=== PATIENT | female | born 1930 | race Caucasian/White ===

== ENCOUNTER 2019-10-20 11:05 | Inpatient (IN) ==
[2019-10-20] MEDS ORDERED: ACETAMINOPHEN 325 MG TABLET PO PRN (17:33)
[2019-10-20] MEDS: SODIUM CHLORIDE 0.9% 1,000 ML IV SCH (18:30)
[2019-10-20] MEDS: MORPHINE 4 MG/1 ML VIAL IV PRN (21:22)
[2019-10-21] MEDS: SODIUM CHLORIDE 0.9% 1,000 ML IV SCH ×2 (01:36→13:00)
[2019-10-21] MEDS: MORPHINE 4 MG/1 ML VIAL IV PRN ×3 (03:53→17:47)
[2019-10-21 05:45] LABS: Basophils # 0.1 10*3/uL (0.0-0.2); Basophils % 0.4 % (0.0-0.8); Eosinophils # 0.3 10*3/uL (0.0-0.87); Eosinophils % 2.1 % (0.00-10.9); Hematocrit 32.5 VOL% (35.7-47.0); Hemoglobin 10.4 GM/DL (12.0-16.0); Immature Granulocytes % 0.5 %; Immature Granulocytes Absolute 0.06 #; Lymphocytes # 0.4 10*3/uL (1.4-4.0); Lymphocytes % 3.1 % (21.3-54.2); Mean Corpuscular Volume 97.9 FL (87-102); Mean Platelet Volume 11.8 FL (9.6-12.0); Monocytes % 3.9 % (1.7-12.7); Platelet Count 158 T/CUMM (130-400); Red Blood Count 3.32 MC/CUMM (3.8-5.5); Red Cell Distribution Width 13.2 % (9.3-17.3); White Blood Count 11.7 T/CUMM (4-12)
[2019-10-21 05:56] LABS: Osmolality,Calculated 287.3 MOS/KG (273-304)
[2019-10-21 06:09] LABS: Band Neutrophils 4 % (0-10); Eosinophils 3 % (0-10); Hypochromasia 1+; Lymphocytes 3 % (20-55); Segmented Neutrophils 88 % (50-85); Total Cells Counted 100
[2019-10-21 06:10] LABS: Platelet Estimate Adequate
[2019-10-21] MEDS: ceFAZolin 2,000 MG in PREMIX 1 EACH IV ONE ×2 (08:59→11:46)
[2019-10-21 10:57] LABS: Basophils # 0.1 10*3/uL (0.0-0.2); Basophils % 0.4 % (0.0-0.8); Eosinophils # 0.1 10*3/uL (0.0-0.87); Eosinophils % 0.7 % (0.00-10.9); Hemoglobin 10.2 GM/DL (12.0-16.0); Immature Granulocytes % 0.7 %; Immature Granulocytes Absolute 0.11 #; Lymphocytes # 2.9 10*3/uL (1.4-4.0); Lymphocytes % 17.4 % (21.3-54.2); Mean Corpuscular HGB Conc 31.9 GM/DL (32-36); Mean Corpuscular Volume 100.6 FL (87-102); Mean Platelet Volume 11.6 FL (9.6-12.0); Neutrophils % 77.8 % (38.7-73.9); Platelet Count 161 T/CUMM (130-400); Red Blood Count 3.18 MC/CUMM (3.8-5.5); Red Cell Distribution Width 13.2 % (9.3-17.3); White Blood Count 16.5 T/CUMM (4-12)
[2019-10-21] MEDS ORDERED: LIDOCAINE 2% 5 ML VIAL ONE (11:30)
[2019-10-21] MEDS ORDERED: BUPIVACAINE SPINAL 0.75% 2 ML AMP SPINAL ONE (11:30)
[2019-10-21] MEDS ORDERED: PHENYLEPHRINE 1 MG/10 ML SYRINGE IV ONE (11:31)
[2019-10-21] MEDS ORDERED: propofoL 200 MG/20 ML VIAL IV ONE (11:31)
[2019-10-21] MEDS ORDERED: KETAMINE 500 MG/10 ML VIAL ONE (11:31)
[2019-10-21] MEDS ORDERED: ATROPINE 0.4 MG/1 ML VIAL ONE (11:31)
[2019-10-21] MEDS: PANTOPRAZOLE 40 MG TABLET PO SCH (11:37)
[2019-10-21 12:33] LABS: Calcium 7.6 MG/DL (8.5-10.1); Osmolality,Calculated 287.4 MOS/KG (273-304)
[2019-10-21] MEDS ORDERED: ONDANSETRON 4 MG TABLET PO PRN (14:55)
[2019-10-21 16:05] LABS: CKMB % 2.1 %
[2019-10-21 16:08] LABS: Troponin I 2.05 NG/ML (0.00-0.045)
[2019-10-21 17:36] LABS: Apearance,Urine Slightly Hazy (Clear); Bilirubin,Urine Negative (Negative); Blood, Urine Moderate mg/dL (Negative); Glucose,Urine (UA) 50 mg/dL (Negative); Hyaline Casts,Urine 15 /LPF (0-3); Ketones,Urine Negative (Negative); Mucus,Urine Few /LPF (Occasional); Nitrite,Urine Negative (Negative); Protein,Urine 100 MG/DL; RBC,Urine 115 /HPF (0-4); Urine Color Amber (Yellow); Urine Specific Gravity 1.025 (1.001-1.035); Urine Urobilinogen < 2.0 EU/DL (0.2-1.0); WBC,Urine 18 /HPF (0-6)
[2019-10-21 18:52] LABS: Troponin I 1.56 NG/ML (0.00-0.045)
[2019-10-21] MEDS: RIVASTIGMINE 3 MG CAPSULE PO SCH (20:14)
[2019-10-21] MEDS: POTASSIUM CHLORIDE 10 MEQ TABLET PO SCH (20:14)
[2019-10-21] MEDS: carBAMazepine 200 MG TABLET PO SCH (20:14)
[2019-10-21] MEDS: SIMETHICONE CHEW 80 MG TABLET PO SCH (20:15)
[2019-10-21 21:49] LABS: CKMB % 2.3 %
[2019-10-21 21:58] LABS: Troponin I 1.89 NG/ML (0.00-0.045)
[2019-10-22 05:41] LABS: Basophils % 0.3 % (0.0-0.8); Eosinophils # 0.2 10*3/uL (0.0-0.87); Eosinophils % 2.3 % (0.00-10.9); Hemoglobin 7.9 GM/DL (12.0-16.0); Immature Granulocytes % 0.4 %; Immature Granulocytes Absolute 0.04 #; Lymphocytes # 0.4 10*3/uL (1.4-4.0); Lymphocytes % 4.2 % (21.3-54.2); Mean Corpuscular HGB Conc 31.6 GM/DL (32-36); Mean Corpuscular Volume 100.8 FL (87-102); Mean Platelet Volume 11.8 FL (9.6-12.0); Monocytes % 4.4 % (1.7-12.7); Neutrophils % 88.4 % (38.7-73.9); Platelet Count 126 T/CUMM (130-400); Red Blood Count 2.48 MC/CUMM (3.8-5.5); Red Cell Distribution Width 13.2 % (9.3-17.3); White Blood Count 9.6 T/CUMM (4-12)
[2019-10-22 06:00] LABS: Calcium 7.9 MG/DL (8.5-10.1); Osmolality,Calculated 289.3 MOS/KG (273-304)
[2019-10-22 06:07] LABS: Eosinophils 3 % (0-10); Hypochromasia 1+; Lymphocytes 3 % (20-55); Ovalocytes Slight; Segmented Neutrophils 91 % (50-85); Total Cells Counted 100
[2019-10-22 06:08] LABS: Macrocytosis Slight; Platelet Estimate Adequate
[2019-10-22] MEDS: RIVASTIGMINE 3 MG CAPSULE PO SCH ×2 (08:24→21:21)
[2019-10-22] MEDS: ASPIRIN 325 MG TABLET PO SCH (08:24)
[2019-10-22] MEDS: POLYETHYLENE GLYCOL POWDER 17 GM PACK PO SCH (08:24)
[2019-10-22] MEDS: SIMETHICONE CHEW 80 MG TABLET PO SCH ×2 (08:24→21:21)
[2019-10-22] MEDS: POTASSIUM CHLORIDE 10 MEQ TABLET PO SCH ×2 (08:24→21:21)
[2019-10-22] MEDS: PANTOPRAZOLE 40 MG TABLET PO SCH (08:25)
[2019-10-22] MEDS: CITALOPRAM 20 MG TABLET PO SCH (08:25)
[2019-10-22] MEDS: carBAMazepine 200 MG TABLET PO SCH ×2 (08:25→21:21)
[2019-10-22] MEDS ORDERED: lisinopriL 20 MG TABLET PO SCH (09:00)
[2019-10-22] MEDS: SODIUM CHLORIDE 0.9% 1,000 ML IV SCH ×3 (09:18→22:07)
[2019-10-22] MEDS: MORPHINE 4 MG/1 ML VIAL IV PRN ×4 (10:12→19:40)
[2019-10-22] MEDS: hydrALAZINE 20 MG/1 ML VIAL IV PRN (18:27)
[2019-10-23] MEDS: SODIUM CHLORIDE 0.9% 1,000 ML IV SCH ×4 (01:32→17:43)
[2019-10-23] MEDS: MORPHINE 4 MG/1 ML VIAL IV PRN ×4 (05:05→21:36)
[2019-10-23 05:36] LABS: Basophils % 0.4 % (0.0-0.8); Eosinophils # 0.4 10*3/uL (0.0-0.87); Eosinophils % 5.4 % (0.00-10.9); Hematocrit 23.6 VOL% (35.7-47.0); Hemoglobin 7.6 GM/DL (12.0-16.0); Immature Granulocytes % 0.4 %; Immature Granulocytes Absolute 0.03 #; Lymphocytes # 0.7 10*3/uL (1.4-4.0); Lymphocytes % 8.2 % (21.3-54.2); Mean Corpuscular HGB Conc 32.2 GM/DL (32-36); Mean Corpuscular Volume 97.9 FL (87-102); Mean Platelet Volume 11.9 FL (9.6-12.0); Monocytes % 5.5 % (1.7-12.7); Neutrophils % 80.1 % (38.7-73.9); Platelet Count 127 T/CUMM (130-400); Red Blood Count 2.41 MC/CUMM (3.8-5.5); Red Cell Distribution Width 13.2 % (9.3-17.3)
[2019-10-23 06:16] LABS: Calcium 7.6 MG/DL (8.5-10.1); Osmolality,Calculated 284.4 MOS/KG (273-304)
[2019-10-23] MEDS ORDERED: KETOROLAC 30 MG/1 ML VIAL IV ONE (08:00)
[2019-10-23] MEDS: hydrALAZINE 20 MG/1 ML VIAL IV PRN ×2 (09:09→16:37)
[2019-10-23] MEDS ORDERED: SODIUM CHLORIDE 0.9% 1,000 ML IV PRN (09:13)
[2019-10-23] MEDS: ONDANSETRON 4 MG/2 ML VIAL IV PRN ×2 (10:24→20:05)
[2019-10-23] MEDS: HYDROmorphone 2 MG/1 ML VIAL IV PRN ×3 (10:24→22:46)
[2019-10-23] MEDS: RIVASTIGMINE 3 MG CAPSULE PO SCH ×2 (12:55→20:26)
[2019-10-23] MEDS: ASPIRIN 325 MG TABLET PO SCH (12:55)
[2019-10-23] MEDS: LINACLOTIDE 145 MCG CAPSULE PO SCH (12:55)
[2019-10-23] MEDS: SIMETHICONE CHEW 80 MG TABLET PO SCH ×2 (12:55→20:26)
[2019-10-23] MEDS: CITALOPRAM 20 MG TABLET PO SCH (12:55)
[2019-10-23] MEDS: POLYETHYLENE GLYCOL POWDER 17 GM PACK PO SCH (12:55)
[2019-10-23] MEDS ORDERED: ceFAZolin 1,000 MG VIAL ONE (13:28)
[2019-10-23] MEDS ORDERED: BISACODYL 10 MG SUPP RECTAL PRN (14:24)
[2019-10-23] MEDS ORDERED: TEMAZEPAM 7.5 MG CAPSULE PO PRN (14:24)
[2019-10-23] MEDS ORDERED: diphenhydrAMINE CAP 25 MG CAPSULE PO PRN (14:24)
[2019-10-23] MEDS ORDERED: LACTULOSE 20 GM/30 ML UDCUP PO PRN (14:24)
[2019-10-23] MEDS ORDERED: MAGNESIUM HYDROXIDE SUSP 30 ML UDCUP PO PRN (14:24)
[2019-10-23] MEDS ORDERED: MORPHINE 4 MG/1 ML VIAL IV PRN (14:40)
[2019-10-23] MEDS ORDERED: fentaNYL 100 MCG/2 ML VIAL ONE (14:49)
[2019-10-23] MEDS ORDERED: SEVOFLURANE 1 UNIT/15 MINUTE INH ONE (14:49)
[2019-10-23] MEDS ORDERED: ROCURONIUM 100 MG/10 ML VIAL IV ONE (14:50)
[2019-10-23] MEDS ORDERED: ePHEDrine 50 MG/ML AMP ONE (14:50)
[2019-10-23] MEDS ORDERED: GLYCOPYRROLATE 0.4 MG/2 ML VIAL ONE (14:50)
[2019-10-23] MEDS ORDERED: NEOSTIGMINE 10 MG/10 ML VIAL ONE (14:50)
[2019-10-23] MEDS ORDERED: ETOMIDATE 40 MG/20 ML VIAL IV ONE (14:50)
[2019-10-23] MEDS: PANTOPRAZOLE 40 MG VIAL IV SCH ×2 (15:01→20:25)
[2019-10-23] MEDS: carBAMazepine 200 MG TABLET PO SCH ×2 (15:02→20:27)
[2019-10-23] MEDS: hydrALAZINE 25 MG TABLET PO SCH ×2 (15:03→20:26)
[2019-10-23] MEDS: lisinopriL 20 MG TABLET PO SCH (17:26)
[2019-10-23] MEDS: ceFAZolin 1,000 MG in SYRINGE 1 EACH IV SCH (17:59)
[2019-10-23] MEDS: DOCUSATE SODIUM 100 MG CAPSULE PO SCH (20:26)
[2019-10-23] MEDS: QUEtiapine 25 MG TABLET PO SCH (20:27)
[2019-10-23] MEDS: carvediloL 6.25 MG TABLET PO SCH (20:27)
[2019-10-24] MEDS: ceFAZolin 1,000 MG in SYRINGE 1 EACH IV SCH (02:51)
[2019-10-24] MEDS: SODIUM CHLORIDE 0.9% 1,000 ML IV SCH ×2 (03:48→13:50)
[2019-10-24 06:09] LABS: Basophils % 0.3 % (0.0-0.8); Eosinophils # 0.2 10*3/uL (0.0-0.87); Eosinophils % 2.8 % (0.00-10.9); Hematocrit 27.2 VOL% (35.7-47.0); Hemoglobin 8.7 GM/DL (12.0-16.0); Immature Granulocytes % 0.5 %; Immature Granulocytes Absolute 0.03 #; Lymphocytes # 0.2 10*3/uL (1.4-4.0); Lymphocytes % 3.3 % (21.3-54.2); Mean Corpuscular Volume 95.8 FL (87-102); Mean Platelet Volume 12.1 FL (9.6-12.0); Monocytes % 6.7 % (1.7-12.7); Neutrophils % 86.4 % (38.7-73.9); Platelet Count 102 T/CUMM (130-400); Red Blood Count 2.84 MC/CUMM (3.8-5.5); Red Cell Distribution Width 16.5 % (9.3-17.3)
[2019-10-24 06:33] LABS: Eosinophils 3 % (0-10); Lymphocytes 1 % (20-55); Platelet Estimate Decreased; Segmented Neutrophils 93 % (50-85); Total Cells Counted 100
[2019-10-24 06:34] LABS: Hypochromasia 1+
[2019-10-24 06:35] LABS: Calcium 7.3 MG/DL (8.5-10.1); Osmolality,Calculated 287.1 MOS/KG (273-304)
[2019-10-24] MEDS: hydrALAZINE 20 MG/1 ML VIAL IV PRN (06:52)
[2019-10-24] MEDS: HYDROmorphone 2 MG/1 ML VIAL IV PRN ×2 (07:20→15:37)
[2019-10-24] MEDS: ONDANSETRON 4 MG/2 ML VIAL IV PRN (07:22)
[2019-10-24] MEDS ORDERED: hydrALAZINE 25 MG TABLET PO SCH (09:00)
[2019-10-24] MEDS: ASPIRIN 325 MG TABLET PO SCH (09:25)
[2019-10-24] MEDS: lisinopriL 20 MG TABLET PO SCH (09:25)
[2019-10-24] MEDS: SOLIFENACIN 5 MG TABLET PO SCH (09:25)
[2019-10-24] MEDS: QUEtiapine 25 MG TABLET PO SCH ×2 (09:26→21:43)
[2019-10-24] MEDS: CITALOPRAM 20 MG TABLET PO SCH (09:26)
[2019-10-24] MEDS: SIMETHICONE CHEW 80 MG TABLET PO SCH ×2 (09:26→21:42)
[2019-10-24] MEDS: DOCUSATE SODIUM 100 MG CAPSULE PO SCH ×2 (09:26→21:42)
[2019-10-24] MEDS: carvediloL 6.25 MG TABLET PO SCH ×2 (09:27→21:42)
[2019-10-24] MEDS: MORPHINE ER 15 MG TABLET PO SCH (09:27)
[2019-10-24] MEDS: carBAMazepine 200 MG TABLET PO SCH ×2 (09:27→21:43)
[2019-10-24] MEDS: RIVASTIGMINE 3 MG CAPSULE PO SCH ×2 (09:28→21:42)
[2019-10-24] MEDS: PANTOPRAZOLE 40 MG VIAL IV SCH ×2 (09:29→21:21)
[2019-10-24] MEDS: POLYETHYLENE GLYCOL POWDER 17 GM PACK PO SCH (09:29)
[2019-10-24] MEDS: FONDAPARINUX 2.5 MG/0.5 ML SYRINGE SUBCUT SCH (09:31)
[2019-10-24] MEDS: MORPHINE 4 MG/1 ML VIAL IV PRN (21:17)
[2019-10-25 05:03] LABS: Basophils % 0.3 % (0.0-0.8); Eosinophils # 0.1 10*3/uL (0.0-0.87); Eosinophils % 0.9 % (0.00-10.9); Hematocrit 24.6 VOL% (35.7-47.0); Immature Granulocytes % 0.3 %; Immature Granulocytes Absolute 0.02 #; Lymphocytes # 0.3 10*3/uL (1.4-4.0); Lymphocytes % 4.1 % (21.3-54.2); Mean Corpuscular HGB Conc 32.5 GM/DL (32-36); Mean Platelet Volume 11.6 FL (9.6-12.0); Monocytes % 6.4 % (1.7-12.7); Platelet Count 122 T/CUMM (130-400); Red Blood Count 2.59 MC/CUMM (3.8-5.5); Red Cell Distribution Width 15.8 % (9.3-17.3); White Blood Count 6.8 T/CUMM (4-12)
[2019-10-25 05:13] LABS: Calcium 7.8 MG/DL (8.5-10.1)
[2019-10-25 06:01] LABS: Eosinophils 1 % (0-10); Lymphocytes 6 % (20-55); Segmented Neutrophils 87 % (50-85); Total Cells Counted 100
[2019-10-25 06:02] LABS: Anisocytosis 1+; Macrocytosis 1+; Platelet Estimate Decreased
[2019-10-25] MEDS: lisinopriL 20 MG TABLET PO SCH (08:29)
[2019-10-25] MEDS: SOLIFENACIN 5 MG TABLET PO SCH (08:29)
[2019-10-25] MEDS: carvediloL 6.25 MG TABLET PO SCH (08:29)
[2019-10-25] MEDS: RIVASTIGMINE 3 MG CAPSULE PO SCH (08:29)
[2019-10-25] MEDS: MORPHINE ER 15 MG TABLET PO SCH (08:29)
[2019-10-25] MEDS: ASPIRIN 325 MG TABLET PO SCH (08:29)
[2019-10-25] MEDS: CITALOPRAM 20 MG TABLET PO SCH (08:30)
[2019-10-25] MEDS: QUEtiapine 25 MG TABLET PO SCH (08:30)
[2019-10-25] MEDS: SIMETHICONE CHEW 80 MG TABLET PO SCH (08:30)
[2019-10-25] MEDS: POLYETHYLENE GLYCOL POWDER 17 GM PACK PO SCH (08:30)
[2019-10-25] MEDS: DOCUSATE SODIUM 100 MG CAPSULE PO SCH (08:30)
[2019-10-25] MEDS: carBAMazepine 200 MG TABLET PO SCH (08:30)
[2019-10-25] MEDS: FONDAPARINUX 2.5 MG/0.5 ML SYRINGE SUBCUT SCH (08:31)
[2019-10-25] MEDS: LINACLOTIDE 145 MCG CAPSULE PO SCH (08:50)
[2019-10-25] MEDS: MORPHINE 4 MG/1 ML VIAL IV PRN (08:52)
[2019-10-25] MEDS: SODIUM CHLORIDE 0.9% 1,000 ML IV SCH ×2 (08:57→18:32)
[2019-10-25] MEDS: PANTOPRAZOLE 40 MG VIAL IV SCH (11:27)
[2019-10-25] MEDS ORDERED: KETOROLAC 30 MG/1 ML VIAL IV ONE (17:52)
[2019-10-25] MEDS: KETOROLAC 15 MG/1 ML VIAL IV PRN (23:33)
[2019-10-26] MEDS: QUEtiapine 25 MG TABLET PO SCH ×3 (01:42→23:05)
[2019-10-26] MEDS: carBAMazepine 200 MG TABLET PO SCH ×3 (01:42→23:05)
[2019-10-26] MEDS: hydrALAZINE 20 MG/1 ML VIAL IV PRN ×2 (04:28→14:45)
[2019-10-26] MEDS: KETOROLAC 15 MG/1 ML VIAL IV PRN (05:28)
[2019-10-26] MEDS: SODIUM CHLORIDE 0.9% 1,000 ML IV SCH (05:32)
[2019-10-26] MEDS: carvediloL 6.25 MG TABLET PO SCH ×3 (06:01→23:04)
[2019-10-26] MEDS: DOCUSATE SODIUM 100 MG CAPSULE PO SCH ×3 (06:01→23:03)
[2019-10-26] MEDS: RIVASTIGMINE 3 MG CAPSULE PO SCH ×3 (06:02→23:04)
[2019-10-26] MEDS: PANTOPRAZOLE 40 MG VIAL IV SCH ×2 (06:02→08:13)
[2019-10-26] MEDS: SIMETHICONE CHEW 80 MG TABLET PO SCH ×3 (06:02→23:04)
[2019-10-26] MEDS ORDERED: SODIUM CHLORIDE 0.9% 1,000 ML IV PRN (07:36)
[2019-10-26] MEDS: ASPIRIN 325 MG TABLET PO SCH (08:12)
[2019-10-26] MEDS: POLYETHYLENE GLYCOL POWDER 17 GM PACK PO SCH (08:12)
[2019-10-26] MEDS: SOLIFENACIN 5 MG TABLET PO SCH (08:13)
[2019-10-26] MEDS: CITALOPRAM 20 MG TABLET PO SCH (08:13)
[2019-10-26] MEDS: lisinopriL 20 MG TABLET PO SCH (08:13)
[2019-10-26] MEDS: MORPHINE ER 15 MG TABLET PO SCH ×2 (08:27→09:10)
[2019-10-26] MEDS: FONDAPARINUX 2.5 MG/0.5 ML SYRINGE SUBCUT SCH (10:46)
[2019-10-26] MEDS ORDERED: HydrOXYzine PAMOATE 25 MG CAPSULE PO ONE (11:36)
[2019-10-26] MEDS ORDERED: HALOPERIDOL 5 MG/ML AMP IV ONE ×2 (12:31→14:44)
[2019-10-26] MEDS ORDERED: MORPHINE 4 MG/1 ML VIAL IV ONE (14:45)
[2019-10-26 18:46] LABS: Hematocrit 27.4 VOL% (35.7-47.0); Hemoglobin 8.9 GM/DL (12.0-16.0)
[2019-10-27] MEDS: PANTOPRAZOLE 40 MG VIAL IV SCH ×3 (04:34→22:08)
[2019-10-27] MEDS: hydrALAZINE 20 MG/1 ML VIAL IV PRN (05:23)
[2019-10-27] MEDS ORDERED: HALOPERIDOL 5 MG/ML AMP IV ONE (08:46)
[2019-10-27] MEDS ORDERED: ALBUTEROL/IPRATROPIUM 3 ML NEB RESP TX ONE (08:47)
[2019-10-27] MEDS: LINACLOTIDE 145 MCG CAPSULE PO SCH (09:00)
[2019-10-27] MEDS: CITALOPRAM 20 MG TABLET PO SCH (09:50)
[2019-10-27] MEDS: carvediloL 6.25 MG TABLET PO SCH ×2 (09:50→22:08)
[2019-10-27] MEDS: ASPIRIN 325 MG TABLET PO SCH (09:50)
[2019-10-27] MEDS: RIVASTIGMINE 3 MG CAPSULE PO SCH ×2 (09:50→22:06)
[2019-10-27] MEDS: DOCUSATE SODIUM 100 MG CAPSULE PO SCH ×2 (09:50→22:52)
[2019-10-27] MEDS: POLYETHYLENE GLYCOL POWDER 17 GM PACK PO SCH (09:51)
[2019-10-27] MEDS: SIMETHICONE CHEW 80 MG TABLET PO SCH ×2 (09:52→22:52)
[2019-10-27] MEDS: lisinopriL 20 MG TABLET PO SCH (09:53)
[2019-10-27] MEDS: amLODIPine 10 MG TABLET PO SCH (09:54)
[2019-10-27] MEDS: carBAMazepine 200 MG TABLET PO SCH ×2 (09:54→22:08)
[2019-10-27] MEDS: QUEtiapine 25 MG TABLET PO SCH ×2 (09:54→22:08)
[2019-10-27] MEDS: SOLIFENACIN 5 MG TABLET PO SCH (09:54)
[2019-10-27] MEDS: FONDAPARINUX 2.5 MG/0.5 ML SYRINGE SUBCUT SCH (11:03)
[2019-10-27] MEDS: MORPHINE ER 15 MG TABLET PO SCH (11:04)
[2019-10-27] MEDS: ALBUTEROL/IPRATROPIUM 3 ML NEB RESP TX SCH ×3 (11:21→19:58)
[2019-10-27] MEDS: PIPERACILLIN/TAZOBACTAM 3,375 MG in SODIUM CHLORIDE 0.9% 100 ML IV SCH ×2 (13:44→22:25)
[2019-10-27] MEDS: SODIUM CHLORIDE 0.9% 1,000 ML IV SCH (16:30)
[2019-10-28] MEDS: ALBUTEROL/IPRATROPIUM 3 ML NEB RESP TX SCH ×7 (00:28→23:20)
[2019-10-28] MEDS: hydrALAZINE 20 MG/1 ML VIAL IV PRN (00:46)
[2019-10-28] MEDS: KETOROLAC 15 MG/1 ML VIAL IV PRN (04:53)
[2019-10-28 05:03] LABS: Basophils % 0.4 % (0.0-0.8); Eosinophils # 0.1 10*3/uL (0.0-0.87); Eosinophils % 1.3 % (0.00-10.9); Hematocrit 29.5 VOL% (35.7-47.0); Hemoglobin 9.8 GM/DL (12.0-16.0); Immature Granulocytes Absolute 0.08 #; Lymphocytes # 0.4 10*3/uL (1.4-4.0); Lymphocytes % 5.5 % (21.3-54.2); Mean Corpuscular HGB Conc 33.2 GM/DL (32-36); Mean Corpuscular Volume 92.5 FL (87-102); Mean Platelet Volume 10.5 FL (9.6-12.0); Monocytes % 6.3 % (1.7-12.7); Neutrophils % 85.5 % (38.7-73.9); Platelet Count 236 T/CUMM (130-400); Red Blood Count 3.19 MC/CUMM (3.8-5.5); Red Cell Distribution Width 14.8 % (9.3-17.3); White Blood Count 7.9 T/CUMM (4-12)
[2019-10-28 05:35] LABS: Calcium 7.7 MG/DL (8.5-10.1); Osmolality,Calculated 282.3 MOS/KG (273-304)
[2019-10-28] MEDS: PIPERACILLIN/TAZOBACTAM 3,375 MG in SODIUM CHLORIDE 0.9% 100 ML IV SCH ×2 (06:41→15:33)
[2019-10-28] MEDS ORDERED: MAGNESIUM SULF RIDER 4 GM in PREMIX 1 EACH IV PRN (08:15)
[2019-10-28] MEDS ORDERED: MAGNESIUM SULF RIDER 2 GM in PREMIX 1 EACH IV PRN (08:15)
[2019-10-28] MEDS: SOLIFENACIN 5 MG TABLET PO SCH (11:15)
[2019-10-28] MEDS: RIVASTIGMINE 3 MG CAPSULE PO SCH ×2 (11:15→21:42)
[2019-10-28] MEDS: SIMETHICONE CHEW 80 MG TABLET PO SCH ×2 (11:15→21:43)
[2019-10-28] MEDS: ASPIRIN 325 MG TABLET PO SCH (11:15)
[2019-10-28] MEDS: lisinopriL 20 MG TABLET PO SCH (11:15)
[2019-10-28] MEDS: carvediloL 6.25 MG TABLET PO SCH ×2 (11:15→21:43)
[2019-10-28] MEDS: CITALOPRAM 20 MG TABLET PO SCH (11:16)
[2019-10-28] MEDS: DOCUSATE SODIUM 100 MG CAPSULE PO SCH ×2 (11:16→21:44)
[2019-10-28] MEDS: PANTOPRAZOLE 40 MG VIAL IV SCH ×2 (11:16→21:44)
[2019-10-28] MEDS: carBAMazepine 200 MG TABLET PO SCH ×2 (11:16→21:43)
[2019-10-28] MEDS: MORPHINE ER 15 MG TABLET PO SCH (11:17)
[2019-10-28] MEDS: QUEtiapine 25 MG TABLET PO SCH ×2 (11:17→21:42)
[2019-10-28] MEDS: POLYETHYLENE GLYCOL POWDER 17 GM PACK PO SCH (11:18)
[2019-10-28] MEDS: amLODIPine 10 MG TABLET PO SCH (11:18)
[2019-10-28] MEDS: POTASSIUM CHLORIDE 20 MEQ TABLET PO PRN ×4 (12:53→18:53)
[2019-10-29] MEDS: hydrALAZINE 20 MG/1 ML VIAL IV PRN (00:07)
[2019-10-29] MEDS: PIPERACILLIN/TAZOBACTAM 3,375 MG in SODIUM CHLORIDE 0.9% 100 ML IV SCH ×3 (01:25→18:20)
[2019-10-29] MEDS: ALBUTEROL/IPRATROPIUM 3 ML NEB RESP TX SCH ×6 (03:21→23:40)
[2019-10-29 05:52] LABS: Basophils % 0.6 % (0.0-0.8); Eosinophils # 0.3 10*3/uL (0.0-0.87); Eosinophils % 4.2 % (0.00-10.9); Hematocrit 30.7 VOL% (35.7-47.0); Hemoglobin 10.3 GM/DL (12.0-16.0); Immature Granulocytes % 0.8 %; Immature Granulocytes Absolute 0.06 #; Lymphocytes # 0.4 10*3/uL (1.4-4.0); Lymphocytes % 5.7 % (21.3-54.2); Mean Corpuscular HGB Conc 33.6 GM/DL (32-36); Mean Corpuscular Volume 91.9 FL (87-102); Mean Platelet Volume 9.8 FL (9.6-12.0); Monocytes % 6.7 % (1.7-12.7); Platelet Count 278 T/CUMM (130-400); Red Blood Count 3.34 MC/CUMM (3.8-5.5); White Blood Count 7.2 T/CUMM (4-12)
[2019-10-29 06:05] LABS: Calcium 7.6 MG/DL (8.5-10.1); Osmolality,Calculated 279.4 MOS/KG (273-304)
[2019-10-29] MEDS: amLODIPine 10 MG TABLET PO SCH (09:26)
[2019-10-29] MEDS: RIVASTIGMINE 3 MG CAPSULE PO SCH ×2 (09:27→22:16)
[2019-10-29] MEDS: CITALOPRAM 20 MG TABLET PO SCH (09:27)
[2019-10-29] MEDS: SOLIFENACIN 5 MG TABLET PO SCH (09:27)
[2019-10-29] MEDS: QUEtiapine 25 MG TABLET PO SCH ×2 (09:27→22:16)
[2019-10-29] MEDS: carBAMazepine 200 MG TABLET PO SCH ×2 (09:27→22:17)
[2019-10-29] MEDS: ASPIRIN 325 MG TABLET PO SCH (09:27)
[2019-10-29] MEDS: SIMETHICONE CHEW 80 MG TABLET PO SCH ×2 (09:28→22:18)
[2019-10-29] MEDS: DOCUSATE SODIUM 100 MG CAPSULE PO SCH ×2 (09:28→22:17)
[2019-10-29] MEDS: MORPHINE ER 15 MG TABLET PO SCH (09:29)
[2019-10-29] MEDS: LINACLOTIDE 145 MCG CAPSULE PO SCH (09:29)
[2019-10-29] MEDS: POLYETHYLENE GLYCOL POWDER 17 GM PACK PO SCH (09:29)
[2019-10-29] MEDS: lisinopriL 20 MG TABLET PO SCH (09:29)
[2019-10-29] MEDS: PANTOPRAZOLE 40 MG VIAL IV SCH ×2 (09:30→22:18)
[2019-10-29] MEDS: carvediloL 6.25 MG TABLET PO SCH (09:36)
[2019-10-29] MEDS ORDERED: carvediloL 6.25 MG TABLET PO ONE (11:04)
[2019-10-29] MEDS: carvediloL 12.5 MG TABLET PO SCH (18:20)
[2019-10-30] MEDS: PIPERACILLIN/TAZOBACTAM 3,375 MG in SODIUM CHLORIDE 0.9% 100 ML IV SCH ×3 (01:10→17:57)
[2019-10-30] MEDS: ALBUTEROL/IPRATROPIUM 3 ML NEB RESP TX SCH ×5 (03:01→23:31)
[2019-10-30] MEDS: CITALOPRAM 20 MG TABLET PO SCH (09:10)
[2019-10-30] MEDS: PANTOPRAZOLE 40 MG VIAL IV SCH ×2 (09:10→21:39)
[2019-10-30] MEDS: POLYETHYLENE GLYCOL POWDER 17 GM PACK PO SCH (09:10)
[2019-10-30] MEDS: QUEtiapine 25 MG TABLET PO SCH ×2 (09:10→21:29)
[2019-10-30] MEDS: SOLIFENACIN 5 MG TABLET PO SCH (09:11)
[2019-10-30] MEDS: DOCUSATE SODIUM 100 MG CAPSULE PO SCH ×2 (09:11→21:30)
[2019-10-30] MEDS: RIVASTIGMINE 3 MG CAPSULE PO SCH ×2 (09:11→21:29)
[2019-10-30] MEDS: SIMETHICONE CHEW 80 MG TABLET PO SCH ×2 (09:11→21:29)
[2019-10-30] MEDS: carBAMazepine 200 MG TABLET PO SCH ×2 (09:11→21:29)
[2019-10-30] MEDS: lisinopriL 20 MG TABLET PO SCH (09:11)
[2019-10-30] MEDS: carvediloL 12.5 MG TABLET PO SCH ×2 (09:11→17:57)
[2019-10-30] MEDS: amLODIPine 10 MG TABLET PO SCH (09:12)
[2019-10-30] MEDS: ASPIRIN 325 MG TABLET PO SCH (09:12)
[2019-10-30] MEDS: MORPHINE ER 15 MG TABLET PO SCH (09:12)
[2019-10-31] MEDS: PIPERACILLIN/TAZOBACTAM 3,375 MG in SODIUM CHLORIDE 0.9% 100 ML IV SCH ×2 (01:08→09:06)
[2019-10-31] MEDS: ALBUTEROL/IPRATROPIUM 3 ML NEB RESP TX SCH ×3 (03:08→07:25)
[2019-10-31 08:25] VITALS: BP 175/97
[2019-10-31] MEDS: carvediloL 12.5 MG TABLET PO SCH (09:03)
[2019-10-31] MEDS: DOCUSATE SODIUM 100 MG CAPSULE PO SCH (09:04)
[2019-10-31] MEDS: CITALOPRAM 20 MG TABLET PO SCH (09:04)
[2019-10-31] MEDS: ASPIRIN 325 MG TABLET PO SCH (09:04)
[2019-10-31] MEDS: RIVASTIGMINE 3 MG CAPSULE PO SCH (09:04)
[2019-10-31] MEDS: LINACLOTIDE 145 MCG CAPSULE PO SCH (09:05)
[2019-10-31] MEDS: POLYETHYLENE GLYCOL POWDER 17 GM PACK PO SCH (09:05)
[2019-10-31] MEDS: MORPHINE ER 15 MG TABLET PO SCH (09:05)
[2019-10-31] MEDS: carBAMazepine 200 MG TABLET PO SCH (09:06)
[2019-10-31] MEDS: SOLIFENACIN 5 MG TABLET PO SCH (09:06)
[2019-10-31] MEDS: SIMETHICONE CHEW 80 MG TABLET PO SCH (09:06)
[2019-10-31] MEDS: lisinopriL 20 MG TABLET PO SCH (09:07)
[2019-10-31] MEDS: PANTOPRAZOLE 40 MG VIAL IV SCH (09:07)
[2019-10-31] MEDS: amLODIPine 10 MG TABLET PO SCH (09:07)
[2019-10-31] MEDS: QUEtiapine 25 MG TABLET PO SCH (09:07)
== END 2019-10-31 09:02 | DRG 956 ==
LOC: N.3E 11:16 → SUATTDRO 14:45 → SUPCPDRO 14:45 → N.3E 14:45 → N.ICU 10-21 11:20 → N.3E 10-24 12:50
PROVIDERS: ADMIT Internal Medicine; ATTEND Internal Medicine